=== PATIENT | female | born 1980 | race Caucasian/White ===

== ENCOUNTER 2024-08-29 09:19 | Outpatient (CLI) | payer BC, SELFPAY | END 2024-08-29 09:20 | disposition home or self-care (01) | PROVIDERS: PCP Family Medicine; Visit Provider Family Medicine | DX: R19.7 Diarrhea, unspecified (principal); Z13.220 Encounter for screening for lipoid disorders; Z13.29 Encounter for screening for other suspected endocrine disorder | CPT/HCPCS: 80053; 80061; 84443 ==